=== PATIENT | female | born 1940 | race Caucasian/White ===

== ENCOUNTER 2022-06-18 10:33 | Outpatient (CLI) | payer OTHER, SELFPAY ==
--- NOTE | ~2022-06-18 | XR_ITS ---
XR knee RT 3V 06/18/2022 10:50 Indication: Right knee pain with weightbearing Procedure: 3 views right knee Comparison: 11/03/2019 Findings: There is a medial unicompartmental arthroplasty which appears to be well seated. No evidenc e for interval loosening. There is patellofemoral compartment osteoarthritis. No acute fracture or tr aumatic malalignment. No significant joint effusion. Impression: 1: No acute fracture. Reviewed, dictated and finalized at location B. CARE ATTENDANT Impression: 1: No acute fracture.
== END 2022-06-18 10:34 | disposition home or self-care (01) ==
PROVIDERS: PCP Internal Medicine; Visit Provider Orthopaedic Surgery
DX: M25.561 Pain in right knee (principal); Z96.621 Presence of right artificial elbow joint
CPT/HCPCS: 73562

== ENCOUNTER 2022-12-19 08:03 | Outpatient (CLI) | payer OTHER, SELFPAY ==
--- NOTE | ~2022-12-19 | XR_ITS ---
Right Knee Technique: AP, lateral, and sunrise views were obtained. Clinical History: Arthroplasty COMPARISON: 06/18/2022 Findings: No fracture or dislocation is seen. Medial compartment hemiarthroplasty hardware is unchang ed from prior exam. Mild degenerative change of the lateral and patellofemoral compartments is presen t. Soft tissues are unremarkable. No joint effusion is seen. Impression: Stable medial compartment hemiarthroplasty. Mild degenerative changes of the lateral and patellofemoral compartments. Reviewed, dictated and finalized at location M. Impression: Stable medial compartment hemiarthroplasty. Mild degenerative changes of the lateral and patellofemoral compartments.
== END 2022-12-19 08:04 | disposition home or self-care (01) ==
PROVIDERS: PCP Internal Medicine; Visit Provider Orthopaedic Surgery
DX: Z96.651 Presence of right artificial knee joint (principal)
CPT/HCPCS: 73562